=== PATIENT | male | born 1940 | race African-American/Black ===

== ENCOUNTER 2017-05-19 11:05 | Inpatient (IN) | payer MEDICARE ==
[~2017-05-19] VITALS: Ht 170.2 cm; Wt 92.5 kg
[2017-05-19 11:54] LABS: BASOPHILS % 0.4 % (0.0-2.0); EOSINOPHILS % 1.1 % (0.0-5.0); HEMATOCRIT. 34.3 % (42.0-52.0); HEMOGLOBIN. 11.1 g/dL (14.0-18.0); LYMPHOCYTES % 21.1 % (20.0-50.0); MEAN CORPUSCULAR HEMOGLOBIN 28.4 pg (28.0-32.0); MEAN CORPUSCULAR VOLUME 87.5 fL (80.0-94.0); MEAN PLATELET VOLUME 8.7 fl (7.4-10.4); MONOCYTES % 10.9 % (2.0-8.0); NEUTROPHILS % 66.5 % (40.0-76.0); PLATELET 173 x1000/uL (130-400); RED BLOOD CELL COUNT 3.92 mill/uL (4.7-6.1); RED CELL DISTRIBUTION WIDTH 14.1 % (11.6-14.6)
[2017-05-19] MEDS ORDERED: SODIUM CHLORIDE 0.9% 500 ML IV ONE (11:54)
[2017-05-19] MEDS ORDERED: FAMOTIDINE 20MG/2ML VIAL IV ONE (12:00)
[2017-05-19 12:01] LABS: CHLORIDE 109 mEq/L (98-107); INR 1.1; PARTIAL THROMBOPLASTIN TIME 22.9 sec (23.4-31.0); PROTHROMBIN TIME 11.3 sec (9.4-11.6)
[2017-05-19 12:09] LABS: CARBON DIOXIDE 26 mEq/L (21-32); TROPONIN I < 0.02 ng/mL (0.00-0.04)
[2017-05-19] MEDS ORDERED: SODIUM CHLORIDE 0.9% 1,000 ML IV ONE (12:36)
[2017-05-19] MEDS ORDERED: CEFTRIAXONE 1 G PREMIX 50 ML IV ONE (12:45)
[2017-05-19 14:17] LABS: CLARITY URINE CLOUDY (CLEAR); COLOR URINE DARK YELLOW (YELLOW); GLUCOSE URINE NEGATIVE (NEGATIVE); KETONES URINE 1+ (NEGATIVE); LEUKOCYTE ESTERASE URINE NEGATIVE (NEGATIVE); NITRITE URINE NEGATIVE (NEGATIVE); OCCULT BLOOD URINE NEGATIVE (NEGATIVE); PROTEIN URINE TRACE (NEGATIVE); SPECIFIC GRAVITY URINE 1.025 (1.005-1.030)
[2017-05-19 14:58] LABS: *AMPHETAMINES SCREEN URINE NEGATIVE (NEGATIVE); *BARBITURATES SCREEN URINE NEGATIVE (NEGATIVE); *BENZODIAZEPINES SCREEN URINE NEGATIVE (NEGATIVE); *COCAINE SCREEN URINE NEGATIVE (NEGATIVE); CANNABINOID URINE SCREEN NEGATIVE (NEGATIVE); METHADONE URINE SCREEN NEGATIVE (NEGATIVE); OPIATES URINE SCREEN PRESUMTIVE POSITIVE (NEGATIVE); PHENCYCLIDINE URINE SCREEN NEGATIVE (NEGATIVE)
[2017-05-19 18:54] VITALS: BP 137/68
[2017-05-19 19:50] VITALS: BP 135/69
[2017-05-19] MEDS ORDERED: ONDANSETRON 4MG ODT PO PRN (20:15)
[2017-05-19] MEDS ORDERED: MORPHINE SULFATE 2 MG/ML CPJ (NOT FOR IM USE) IV PRN (21:00)
[2017-05-19] MEDS: FAMOTIDINE 20MG/2ML VIAL IV SCH (21:24)
[2017-05-19] MEDS ORDERED: LOSA100T14 PO (22:37)
[2017-05-19] MEDS ORDERED: ERGO500013 PO (22:37)
[2017-05-19] MEDS ORDERED: ACET-3161 PO (22:37)
[2017-05-19] MEDS ORDERED: AMLO5TAB4 PO (22:37)
[2017-05-19] MEDS: DEXT 5%/0.45% NACL KCL 20MEQ/L 1,000 ML IV SCH (22:39)
[2017-05-20 00:09] VITALS: BP 120/64
[2017-05-20 04:00] VITALS: BP 120/55
[2017-05-20 06:06] LABS: BASOPHILS % 0.4 % (0.0-2.0); EOSINOPHILS % 2.6 % (0.0-5.0); HEMATOCRIT. 32.3 % (42.0-52.0); HEMOGLOBIN. 10.9 g/dL (14.0-18.0); LYMPHOCYTES % 36.9 % (20.0-50.0); MEAN CORPUSCULAR HEMOGLOBIN 28.9 pg (28.0-32.0); MEAN CORPUSCULAR VOLUME 85.9 fL (80.0-94.0); MEAN PLATELET VOLUME 9.4 fl (7.4-10.4); MONOCYTES % 13.8 % (2.0-8.0); NEUTROPHILS % 46.3 % (40.0-76.0); PLATELET 163 x1000/uL (130-400); RED BLOOD CELL COUNT 3.76 mill/uL (4.7-6.1); RED CELL DISTRIBUTION WIDTH 14.2 % (11.6-14.6)
[2017-05-20 06:27] LABS: CARBON DIOXIDE 23 mEq/L (21-32); CHLORIDE 110 mEq/L (98-107); TOTAL IRON BINDING CAPACITY 254 ug/dL (250-450)
[2017-05-20 07:06] LABS: FOLIC ACID (FOLATE) SERUM 5.9 ng/mL (>5.38)
[2017-05-20 08:00] VITALS: BP 118/53
[2017-05-20] MEDS ORDERED: AMLODIPINE 5MG TABLET PO SCH (09:00)
[2017-05-20] MEDS ORDERED: CEFTRIAXONE 1 G PREMIX 50 ML IV SCH (09:00)
[2017-05-20] MEDS ORDERED: LOSARTAN POTASSIUM 100 MG TABLET PO SCH (09:00)
[2017-05-20] MEDS: FAMOTIDINE 20MG/2ML VIAL IV SCH (09:15)
[2017-05-20] MEDS: DEXT 5%/0.45% NACL KCL 20MEQ/L 1,000 ML IV SCH (09:15)
[2017-05-20 12:04] VITALS: BP 130/62
[2017-05-20 14:09] VITALS: BP 130/62
[2017-05-26 09:06] LABS: 25-HYDROXY VITAMIN D3 3.8 ng/mL (.)
== END 2017-05-20 14:40 | disposition home or self-care (01) | DRG 392 ==
LOC: ER 12:07 → 7WST 14:11 → EDBEDREQ 14:14 → ENRESERV 18:03 → SUPCPDRO 18:10
PROVIDERS: ADMIT Internal Medicine Critical Care Medicine; ATTEND Internal Medicine Critical Care Medicine
DX: R10.13 Epigastric pain (principal); I95.9 Hypotension, unspecified; D50.9 Iron deficiency anemia, unspecified; E86.0 Dehydration; I10 Essential (primary) hypertension; N20.0 Calculus of kidney; E53.8 Deficiency of other specified B group vitamins; Z87.891 Personal history of nicotine dependence; Z79.899 Other long term (current) drug therapy
CPT/HCPCS: 36415; 70450; 71010; 74176; 80048; 80053; 80305; 81001; 82306; 82607; 82746; 83540; 83550; 83605; 83690; 83880; 84153; 84484; 85025; 85610; 85730; 87040; 87086; 93005; 96361; 96365; 96366; 96375; 99285; J0696; J3490; J7030; J7040

== ENCOUNTER 2021-06-27 17:36 | Emergency (ER) | payer MEDICARE ==
[~2021-06-27] VITALS: Ht 182.9 cm; Wt 77.0 kg
[~2021-06-27 17:36] MED LIST: ACET-3161 PO; AMLO5TAB4 PO; ERGO500013 PO
[2021-06-27] MEDS ORDERED: SODIUM CHLORIDE 0.9% 1,000 ML IV ONE (22:45)
[2021-06-27 22:52] LABS: BASOPHILS % 0.4 % (0.0-2.0); EOSINOPHILS % 0.3 % (0.0-5.0); HEMATOCRIT. 37.4 % (42.0-52.0); HEMOGLOBIN. 12.5 g/dL (14.0-18.0); LYMPHOCYTES % 13.1 % (20.0-50.0); MEAN CORPUSCULAR HEMOGLOBIN 29.3 pg (28.0-32.0); MEAN CORPUSCULAR VOLUME 87.2 fL (80.0-94.0); MEAN PLATELET VOLUME 8.9 fl (7.4-10.4); MONOCYTES % 9.9 % (2.0-8.0); NEUTROPHILS % 76.3 % (40.0-76.0); PLATELET 190 x1000/uL (130-400); RED BLOOD CELL COUNT 4.29 mill/uL (4.7-6.1); RED CELL DISTRIBUTION WIDTH 13.9 % (11.6-14.6)
[2021-06-27 23:13] LABS: CHLORIDE 107 mEq/L (98-107); ETHANOL BLOOD < 10 mg/dL
[2021-06-28 00:09] LABS: CLARITY URINE CLEAR (CLEAR); COLOR URINE YELLOW (YELLOW); KETONES URINE TRACE (NEGATIVE); LEUKOCYTE ESTERASE URINE NEGATIVE (NEGATIVE); NITRITE URINE NEGATIVE (NEGATIVE); OCCULT BLOOD URINE NEGATIVE (NEGATIVE); PH URINE 5.5 (4.5-8.0); PROTEIN URINE NEGATIVE (NEGATIVE); SPECIFIC GRAVITY URINE 1.019 (1.005-1.030)
[2021-06-28 00:55] LABS: *AMPHETAMINES SCREEN URINE NEGATIVE (NEGATIVE); *BARBITURATES SCREEN URINE NEGATIVE (NEGATIVE); *BENZODIAZEPINES SCREEN URINE NEGATIVE (NEGATIVE); *COCAINE SCREEN URINE NEGATIVE (NEGATIVE); CANNABINOID URINE SCREEN NEGATIVE (NEGATIVE); METHADONE URINE SCREEN NEGATIVE (NEGATIVE); OPIATES URINE SCREEN NEGATIVE (NEGATIVE); PHENCYCLIDINE URINE SCREEN NEGATIVE (NEGATIVE)
[2021-06-28 04:34] VITALS: BP 126/71
== END 2021-06-28 04:36 | disposition home or self-care (01) ==
LOC: ER 17:36
DX: R53.1 Weakness (principal); R41.82 Altered mental status, unspecified; I10 Essential (primary) hypertension
CPT/HCPCS: 36415; 70450; 71045; 80053; 80305; 80307; 80320; 80329; 81003; 82962; 83605; 84484; 85025; 93005; 96360; 99285; J7030; G0480